=== PATIENT | female | born 1975 | race Caucasian/White ===

== ENCOUNTER 2018-08-04 19:53 | Emergency (ER) | payer OTHER ==
[~2018-08-04] VITALS: Ht 162.6 cm; Wt 57.6 kg
[~2018-08-04 19:53] MED LIST: BACTRIM DS TAB1 EAC1 PO; BENADRYL25 MG PO; PREDNISONE50 MG PO
[2018-08-04 19:57] VITALS: BP 137/84
[2018-08-04] MEDS ORDERED: DOXYCYCLINE 10100 M1 PO (19:59)
[2018-08-04] MEDS ORDERED: CLINDAMYCIN PHO60 M1 TOP (20:01)
[2018-08-04] MEDS ORDERED: PREDNISONE 20 M20 M1 PO (20:11)
== END 2018-08-04 20:19 | disposition home or self-care (01) ==
LOC: M.ERS 19:53
DX: R21 Rash and other nonspecific skin eruption (principal); T36.4X5A Adverse effect of tetracyclines, initial encounter; Y92.89 Other specified places as the place of occurrence of the external cause

== ENCOUNTER → 2018-09-19 | Outpatient (CLI) | payer OTHER ==
[~2018-09-19] MED LIST changes: +CLINDAMYCIN PHO60 M1 TOP; +DOXYCYCLINE 10100 M1 PO; +PREDNISONE 20 M20 M1 PO
== END ==
LOC: M.RAD 11:15
DX: Z12.31 Encounter for screening mammogram for malignant neoplasm of breast (principal)

== ENCOUNTER → 2020-09-24 | Outpatient (CLI) | payer OTHER | LOC: M.RAD 09-19 13:30 | PROVIDERS: ATTEND Nurse Practitioner Family | DX: N63.20 Unspecified lump in the left breast, unspecified quadrant (principal) ==

== ENCOUNTER → 2020-12-03 | Outpatient (CLI) | payer OTHER | LOC: M.ULTRA 14:10 | PROVIDERS: ATTEND Nurse Practitioner Family | DX: N64.4 Mastodynia (principal) ==